=== PATIENT | female | born 1960 | race African-American/Black ===

== ENCOUNTER 2021-11-09 10:15 | Observation (INO) ==
[2021-11-09 10:44] LABS: Basophils # 0.1 10*3/uL (0.0-0.2); Basophils % 0.7 % (0.0-0.8); Eosinophils # 0.2 10*3/uL (0.0-0.87); Eosinophils % 3.2 % (0.00-10.9); Hematocrit 40.7 VOL% (35.7-47.0); Hemoglobin 13.2 GM/DL (12.0-16.0); Immature Granulocytes % 0.8 %; Immature Granulocytes Absolute 0.06 #; Lymphocytes # 2.7 10*3/uL (1.4-4.0); Lymphocytes % 35.4 % (21.3-54.2); Mean Corpuscular HGB Conc 32.4 GM/DL (32-36); Mean Corpuscular Volume 87.2 FL (87-102); Mean Platelet Volume 10.1 FL (9.6-12.0); Monocytes # 0.5 10*3/uL (0.11-0.8); Monocytes % 6.3 % (1.7-12.7); Neutrophils % 53.6 % (38.7-73.9); Platelet Count 257 T/CUMM (130-400); Red Blood Count 4.67 MC/CUMM (3.8-5.5); Red Cell Distribution Width 14.2 % (9.3-17.3); White Blood Count 7.5 T/CUMM (4-12)
[2021-11-09] MEDS ORDERED: ASPIRIN 325 MG TABLET PO STA (10:51)
[2021-11-09] MEDS ORDERED: NITROGLYCERIN SL 0.4 MG TABLET SL PRN (10:51)
[2021-11-09 11:09] LABS: Albumin 3.3 G/DL (3.4-5.0); Bilirubin,Total 0.4 MG/DL (0.20-1.00); Calcium 8.6 MG/DL (8.5-10.1); Potassium 3.9 MMOL/L (3.5-5.1); Total Protein 6.6 G/DL (6.4-8.2)
[2021-11-09] MEDS ORDERED: hydrALAZINE 20 MG/1 ML VIAL IV PRN (13:11)
[2021-11-09] MEDS ORDERED: MORPHINE 2 MG/1 ML SYRINGE IV PRN (13:11)
[2021-11-09] MEDS ORDERED: DEXTROSE 10% 250 ML BAG IV PRN (13:11)
[2021-11-09] MEDS ORDERED: ACETAMINOPHEN 325 MG TABLET PO PRN (13:11)
[2021-11-09] MEDS ORDERED: ALUM/MAG/SIMETH/LIDO VISC 1:1 30 ML BOTTLE PO STA (13:11)
[2021-11-09] MEDS ORDERED: GLUCAGON 1 MG VIAL IM PRN (13:11)
[2021-11-09] MEDS ORDERED: ONDANSETRON 4 MG/2 ML VIAL IV PRN (13:11)
[2021-11-09] MEDS ORDERED: ENOXAPARIN 40 MG/0.4 ML SYRINGE SUBCUT SCH (13:30)
[2021-11-09] MEDS: PANTOPRAZOLE 40 MG TABLET PO SCH (20:24)
[2021-11-10 04:47] LABS: Calcium 8.6 MG/DL (8.5-10.1); Osmolality,Calculated 280.1 MOS/KG (273-304); Potassium 4.2 MMOL/L (3.5-5.1)
[2021-11-10 04:51] VITALS: BP 120/78
[2021-11-10] MEDS: PANTOPRAZOLE 40 MG TABLET PO SCH (08:41)
== END 2021-11-10 11:18 | disposition home or self-care (01) ==
LOC: N.EDINP 10:15 → N.ED 10:15 → SUATTDRO 13:11 → N.2W 14:26
PROVIDERS: ADMIT Family Medicine; ATTEND Emergency Medicine